=== PATIENT | female | born 1970 | race Caucasian/White ===

== ENCOUNTER 2023-03-13 20:40 | Emergency (ER) | payer BC, OTHER ==
[2023-03-13] MEDS ORDERED: GLUCAGON 1 MG KIT ONE (21:13)
[2023-03-13 21:17] VITALS: BP 127/74; PULSE 56; RESP 18; TEMP 98.5; BMI 21.1
[2023-03-13] MEDS ORDERED: GLUCAGON 1 MG KIT IVPUSH ONE (21:22)
[2023-03-13] MEDS ORDERED: SODIUM CHLORIDE 1,000 ML IV ONE (21:27)
[2023-03-13 21:34] LABS: HEMATOCRIT 38.8 % (32.4-45.2); HEMOGLOBIN 13.3 G/dL (10.7-15.3); MCH 31.6 pg (25.7-33.7); MCHC 34.4 g/dl (32.0-36.0); MEAN CELL VOLUME 91.9 fl (80-96); MEAN PLT VOLUME 7.4 fl (7.5-11.1); PLATELET COUNT 228.2 10^3/uL (134-434); RBC 4.22 10^6/uL (3.60-5.2); RDW 13.5 % (11.6-15.6); WHITE BLOOD COUNT 7.5 10^3/uL (4.0-10.8)
[2023-03-13 22:28] LABS: ALBUMIN 4.7 g/dl (3.4-5.0); BILIRUBIN,TOTAL 0.4 mg/dl (0.2-1); BLOOD UREA NITROGEN 17.1 mg/dl (7-18); CALCIUM 9.3 mg/dl (8.5-10.1); CREATININE 0.7 mg/dl (0.6-1.3); POTASSIUM 3.6 mmol/L (3.5-5.1); SGOT/AST 16.4 U/L (15-37); SGPT/ALT 15.6 U/L (7-52); TOT PROT 7.1 g/dl (6.4-8.2)
== END 2023-03-13 22:29 | disposition left against medical advice (07) ==
LOC: FER 20:40
PROC: 3E033GC Introduction of Other Therapeutic Substance into Peripheral Vein, Percutaneous Approach (ICD-10-PCS; principal; 2023-03-13)
PROC: 3E0337Z Introduction of Electrolytic and Water Balance Substance into Peripheral Vein, Percutaneous Approach (ICD-10-PCS; 2023-03-13)
DX: T18.128A Food in esophagus causing other injury, initial encounter (principal)
CPT/HCPCS: 36415; 80053; 85027; 99284-25

== ENCOUNTER 2024-08-16 10:43 | Day surgery (SDC) | payer BC ==
[2024-08-16] MEDS: SODIUM CHLORIDE 1,000 ML IV ONE (11:15)
[2024-08-16] MEDS ORDERED: ACETAMINOPHEN INJECTION 100 ML ONE (11:39)
[2024-08-16] MEDS: ACETAMINOPHEN 1000 MG/100 ML BAG IVPB ONE ×2 (11:40→11:45)
[2024-08-16 11:53] LABS: INR 1.24 (0.83-1.09)
[2024-08-16 11:57] LABS: HEMATOCRIT 36.5 % (32.4-45.2); HEMOGLOBIN 12.6 G/dL (10.7-15.3); MCH 31.3 pg (25.7-33.7); MCHC 34.6 g/dl (32.0-36.0); MEAN CELL VOLUME 90.4 fl (80-96); MEAN PLT VOLUME 7.8 fl (7.5-11.1); PLATELET COUNT 216.1 10^3/uL (134-434); RBC 4.04 10^6/uL (3.60-5.2); RDW 12.8 % (11.6-15.6); WHITE BLOOD COUNT 21.6 10^3/uL (4.0-10.8)
[2024-08-16 12:17] LABS: ALBUMIN 4.5 g/dl (3.4-5.0); ALK PHOS 46 U/L (45-117); ANION GAP 9 mmol/L (4-13); BILIRUBIN,TOTAL 1.9 mg/dl (0.2-1); CALCIUM 9.5 mg/dl (8.5-10.1); CHLORIDE 100 mmol/L (98-107); CO2 27 mmol/L (21-32); CREATININE 0.7 mg/dl (0.6-1.3); GLUCOSE,RANDOM 103 mg/dl (74-106); POTASSIUM 3.6 mmol/L (3.5-5.1); SGOT/AST 11 U/L (15-37); SGPT/ALT 9 U/L (7-52); SODIUM 136 mmol/L (136-145); TOT PROT 7.1 g/dl (6.4-8.2)
[2024-08-16] MEDS ORDERED: morphine SULFATE 4 MG/ML VIAL ONE (12:35)
[2024-08-16] MEDS: morphine CARPU-JECT 4 MG/1 ML DISP.SYRIN IVPUSH ONE (12:40)
[2024-08-16 13:06] LABS: PLATELET ESTIMATE ADEQUATE
[2024-08-16] MEDS ORDERED: morphine CARPU-JECT 4 MG/1 ML DISP.SYRIN IVPUSH ONE (13:28)
[2024-08-16] MEDS ORDERED: ACETAMINOPHEN 1000 MG/100 ML BAG IVPB ONE (13:29)
[2024-08-16] MEDS ORDERED: BUPIVACAINE HCL/PF 2.5 MG/ML - 30 ML VIAL IJ ONE (14:19)
[2024-08-16] MEDS ORDERED: ONDANSETRON 4 MG/2 ML VIAL IVPUSH PRN (14:30)
[2024-08-16] MEDS ORDERED: FENTANYL CITRATE/PF 50 MCG/ML VIAL ONE ×3 (14:40→17:22)
[2024-08-16] MEDS ORDERED: MIDAZOLAM HCL 2 MG/2 ML SINGLE DOSE VIAL ONE (14:40)
[2024-08-16] MEDS ORDERED: ROCURONIUM BROMIDE 50 MG/5 ML SYRINGE ONE (14:45)
[2024-08-16] MEDS ORDERED: PROPOFOL 40 ML ONE (14:45)
[2024-08-16] MEDS ORDERED: SUCCINYLCHOLINE CHLORIDE 200 MG/10 ML SYRINGE ONE (14:45)
[2024-08-16] MEDS ORDERED: ONDANSETRON 4 MG/2 ML VIAL ONE (15:23)
[2024-08-16] MEDS ORDERED: DEXAMETHASONE SOD PHOSPHATE 4 MG/1 ML VIAL ONE (15:23)
[2024-08-16] MEDS: BUPIVACAINE HCL/PF 0.25% (2.5MG/ML) 10 ML VIAL IJ ONE ×2 (15:46)
[2024-08-16] MEDS ORDERED: GLYCOPYRROLATE 0.2 MG/1 ML VIAL ONE (15:48)
[2024-08-16] MEDS ORDERED: SUGAMMADEX SODIUM 200 MG/2 ML VIAL ONE (16:07)
[2024-08-16] MEDS ORDERED: KETOROLAC TROMETHAMINE 30 MG/1 ML VIAL ONE (16:08)
[2024-08-16 18:32] VITALS: BMI 22.8
[2024-08-16] MEDS: LACTATED RINGERS SOLUTION 1,000 ML IV SCH (18:35)
[2024-08-16] MEDS: ZOLPIDEM TARTRATE 5 MG TABLET PO ONE (22:01)
[2024-08-16 22:31] VITALS: RESP 18
[2024-08-17] MEDS: oxyCODONE HCL 5 MG TABLET PO PRN (06:11)
[2024-08-17 08:26] LABS: HEMATOCRIT 34.9 % (32.4-45.2); HEMOGLOBIN 11.7 G/dL (10.7-15.3); MCH 30.5 pg (25.7-33.7); MCHC 33.6 g/dl (32.0-36.0); MEAN CELL VOLUME 90.6 fl (80-96); MEAN PLT VOLUME 7.9 fl (7.5-11.1); PLATELET COUNT 181.3 10^3/uL (134-434); RBC 3.85 10^6/uL (3.60-5.2); RDW 13.3 % (11.6-15.6); WHITE BLOOD COUNT 15.7 10^3/uL (4.0-10.8)
[2024-08-17 08:41] LABS: CALCIUM 8.9 mg/dl (8.5-10.1); CREATININE 0.7 mg/dl (0.6-1.3); POTASSIUM 3.6 mmol/L (3.5-5.1)
[2024-08-17 10:05] LABS: ALBUMIN 3.6 g/dl (3.4-5.0); BILIRUBIN,DIRECT 0.2 mg/dL (0.0-0.2); BILIRUBIN,TOTAL 0.7 mg/dl (0.2-1); TOT PROT 5.8 g/dl (6.4-8.2)
[2024-08-17 10:25] VITALS: BP 110/68; PULSE 68; TEMP 97.6
== END 2024-08-17 13:23 | disposition home or self-care (01) ==
LOC: FER 10:43 → SUATTDRO 13:26 → FASU 13:26 → FM/S 18:16 → FASUSAT 19:43 → FM/S 19:43 → FASUSAT 08-17 13:23
PROC: 0DTJ4ZZ Resection of Appendix, Percutaneous Endoscopic Approach (ICD-10-PCS; principal; 2024-08-16 15:46)
DX: K35.891 Other acute appendicitis without perforation, with gangrene (principal)
CPT/HCPCS: 36415; 74177-TC; 80048; 80053; 80076; 81003; 84703; 85025; 85610; 85730; 86850; 86900; 86901; 87086; 93005; 94760; 99285-25; J0131; Q9967